=== PATIENT | male | born 1995 | race Caucasian/White ===

== ENCOUNTER 2024-07-06 10:31 | Emergency (ER) | payer OTHER ==
[~2024-07-06] VITALS: Ht 167.6 cm; Wt 90.9 kg
[2024-07-06 11:29] LABS: BASO % 0.5 % (0.0-1.0); EOS # 0.2 10^3/uL (0.0-0.5); EOS % 3.6 % (0.0-3.0); HEMATOCRIT 41.9 % (42.0-52.0); LYMPH % 30.6 % (24.0-44.0); MEAN CORPUSCULAR HEMOGLOBIN 28.9 pg (27.0-33.0); MEAN CORPUSCULAR HGB CONC 33.4 g/dl (32.0-36.5); MEAN CORPUSCULAR VOLUME 86.4 fl (80.0-96.0); MONO # 0.6 10^3/uL (0.0-0.8); MONO % 8.7 % (2.0-8.0); NEUTROPHILS # 3.7 10^3/uL (1.5-8.5); NEUTROPHILS % 56.3 % (36.0-66.0); PLATELET COUNT, AUTOMATED 152 10^3/uL (150-450); RED BLOOD COUNT 4.85 10^6/uL (4.30-6.10); WHITE BLOOD COUNT 6.5 10^3/uL (4.0-10.0)
[2024-07-06 11:52] LABS: ERYTHROCYTE SEDIMENTATION RATE 9 mm/hr (0-15)
[2024-07-06 11:59] LABS: C REACTIVE PROTEIN QUANTITATIV < 0.40 MG/DL (<1.0); CK-MB VALUE MASS 2.7 NG/ML (<3.6)
[2024-07-06 12:01] LABS: ALKALINE PHOSPHATASE 79 U/L (46-116); ALT/SGPT 46 U/L (7.0-40); AST/SGOT 95 U/L (<34); BILIRUBIN,DIRECT 0.1 MG/DL (<0.4); BILIRUBIN,TOTAL 0.4 MG/DL (0.3-1.2); BLOOD UREA NITROGEN 14 MG/DL (9-23); CALCIUM LEVEL 9.7 MG/DL (8.5-10.1); CARBON DIOXIDE LEVEL 31 MMOL/L (20-31); CHLORIDE LEVEL 107 MMOL/L (98-107); CREATININE FOR GFR 1.07 MG/DL (0.70-1.30); GLOMERULAR FILTRATION RATE > 60.0 (>60); GLUCOSE, FASTING 72 MG/DL (60-100); POTASSIUM SERUM 4.2 MMOL/L (3.5-5.1); SODIUM LEVEL 140 MMOL/L (136-145); TOTAL PROTEIN 7.4 G/DL (5.7-8.2)
[2024-07-06 12:17] LABS: CPK CREATINE PHOSPHOKINASE 3306 U/L (46-171); MB/CK RELATIVE INDEX 0.08 (< OR =4)
[2024-07-06] MEDS: NS 1,000 ML IV ONE (14:45)
[2024-07-06] MEDS: ACETAMINOPHEN *IV* 1,000 MG in IV 1 EA IV ONE (14:46)
[2024-07-06 17:30] LABS: CK-MB VALUE MASS 1.8 NG/ML (<3.6)
[2024-07-06 17:53] LABS: MB/CK RELATIVE INDEX 0.06 (< OR =4)
[2024-07-06 19:03] VITALS: BP 139/76; TEMP 98; O2SAT 98
== END 2024-07-06 19:05 | disposition home or self-care (01) ==
LOC: M ED 10:31
DX: E86.0 Dehydration (principal); R74.8 Abnormal levels of other serum enzymes; I49.49 Other premature depolarization; Z88.8 Allergy status to other drugs, medicaments and biological substances
CPT/HCPCS: 36415; 71045; 80048; 80076; 81001; 82550; 82553; 83735; 84484; 85025; 85652; 86140; 93005; 96365; 96366; 99284; J0131